=== PATIENT | male | born 1970 | race Two or more races ===

== ENCOUNTER 2023-03-31 15:31 | Outpatient (REF) | payer MEDICAID, OTHER, SELFPAY ==
--- NOTE | ~2023-03-31 | XR_ITS ---
EXAMINATION: XR LUMBOSACRAL SPINE CLINICAL INFORMATION: Low back pain. COMPARISON: None available. TECHNIQUE: Three views of the lumbosacral spine. FINDINGS: Degenerative changes are seen at L5-S1 with some disc space narrowing and endplate sclerosis. The vertebral bodies and posterior elements are normal. The remainder of the disc spaces are preserved and the vertebral alignment is normal. There are some mild anterior superior endplate osteophytes seen from L2 through L5. Paraspinal soft tissues are normal. XR/XR lumbar spine 2-3V IMPRESSION: Mild degenerative changes as described above.
[2023-03-31 18:22] LABS: Alanine Aminotransferase 28 U/L (0-40); Albumin Level 4.6 g/dL (3.5-5.0); Alkaline Phosphatase 72 U/L (39-117); Anion Gap 13 (12-20); Aspartate Amino Transferase 22 U/L (5-37); Bilirubin Total 0.4 mg/dL (0.0-1.0); Blood Urea Nitrogen 18 mg/dL (9-16); Calcium 9.8 mg/dL (8.4-10.2); Carbon Dioxide 27 mmol/L (22-29); Chloride 105 mmol/L (96-108); Estimated Glomerular Filt Rate > 60; Glucose Random 91 mg/dL (60-115); Potassium 4.6 mmol/L (3.3-5.1); Sodium 140 mmol/L (135-145); Total Protein 7.7 g/dL (6.5-8.0)
[2023-03-31 18:33] LABS: Prostate Specific Antigen 0.97 ng/mL (<0.05-4.0)
[2023-04-01 01:55] LABS: CT PCR NOT DETECTED (Not Detect.); NG PCR NOT DETECTED (Not Detect.)
[2023-04-01 08:25] LABS: HBS Num1 0.21 mIU/mL (0-7.99); HBc Num1 0.07 S/CO (0.00-0.79); HBsAGNum1 0.29 S/CO (0.00-0.99); HIV AB/AG Nonreactive (Nonreactive); HIV Num 1 0.05 S/CO (0.00-0.99); Hepatitis A Antibody IgM 0.38 Index (0-0.79); Hepatitis B Core Antibody Nonreactive (Nonreactive); Hepatitis B Surface Antigen Negative (Negative); ~HepC Num1 0.13 S/CO (0.00-0.79); ~Hepatitis A Antibody IgM Nonreactive (Nonreactive); ~Hepatitis B Surface Antibody NONREACTIVE (Nonreactive); ~Hepatitis C Antibody Nonreactive (Nonreactive)
[2023-04-02 09:19] LABS: RPR Rapid Plasma Reagin NON-REACTIVE (NON-REACTIVE)
== END 2023-03-31 15:32 | disposition home or self-care (01) ==
LOC: HO.HHCX 15:31
PROVIDERS: Visit Provider Nurse Practitioner
DX: Z00.00 Encounter for general adult medical examination without abnormal findings (principal); E66.3 Overweight; Z11.3 Encounter for screening for infections with a predominantly sexual mode of transmission; Z11.59 Encounter for screening for other viral diseases; M54.42 Lumbago with sciatica, left side; G89.29 Other chronic pain
CPT/HCPCS: 0353U; 72100; 80053; 84153; 86592; 86704; 86706; 86709; 86803; 87340; 87389

== ENCOUNTER 2023-04-02 09:07 | Outpatient (REF) | payer MEDICAID, OTHER, SELFPAY ==
[2023-04-02 12:23] LABS: Cholesterol 185 mg/dL (<200); HDL Cholesterol 46 mg/dL (>40); LDL Cholesterol Calculated 124 mg/dL (<100); Triglycerides 75 mg/dL (<150)
== END 2023-04-02 09:08 | disposition home or self-care (01) ==
LOC: HO.HHCL 09:07
PROVIDERS: Visit Provider Nurse Practitioner
DX: E66.3 Overweight (principal)
CPT/HCPCS: 36415; 80061

== ENCOUNTER 2023-09-06 09:45 | Outpatient (REF) | payer MEDICAID, OTHER, SELFPAY ==
[2023-09-06 11:57] LABS: Alanine Aminotransferase 23 U/L (0-40); Albumin Level 4.6 g/dL (3.5-5.0); Alkaline Phosphatase 77 U/L (39-117); Anion Gap 11 (12-20); Aspartate Amino Transferase 20 U/L (5-37); Bilirubin Direct 0.2 mg/dL (0.0-0.5); Bilirubin Total 0.7 mg/dL (0.0-1.0); Blood Urea Nitrogen 10 mg/dL (9-16); Calcium 9.6 mg/dL (8.4-10.2); Carbon Dioxide 28 mmol/L (22-29); Chloride 105 mmol/L (96-108); Estimated Glomerular Filt Rate > 60; Glucose Random 94 mg/dL (60-115); Potassium 4.2 mmol/L (3.3-5.1); Sodium 140 mmol/L (135-145); Total Protein 7.4 g/dL (6.5-8.0)
[2023-09-06 16:22] LABS: CT PCR NOT DETECTED (Not Detect.); NG PCR NOT DETECTED (Not Detect.)
[2023-09-07 03:57] LABS: HIV AB/AG Nonreactive (Nonreactive); HIV Num 1 0.05 S/CO (0.00-0.99)
[2023-09-07 13:43] LABS: Free Prostate Spec Ag 0.6 ng/mL; Percent Free Prostate Spec Ag 50 % (calc) (>25); Prostate Specific Ag Total 1.2 ng/mL (< OR = 4.0)
== END 2023-09-06 09:46 | disposition home or self-care (01) ==
LOC: HO.HHCL 09:45
PROVIDERS: Visit Provider Nurse Practitioner
DX: Z11.3 Encounter for screening for infections with a predominantly sexual mode of transmission (principal); E66.3 Overweight
CPT/HCPCS: 0353U; 80053; 82248; 84154; 87389